=== PATIENT | male | born 1945 | race Hispanic/Latino ===

== ENCOUNTER 2018-08-11 22:21 | Emergency (ER) | payer MEDICARE, OTHER ==
[2018-08-11 22:36] VITALS: BMI 22.6
[2018-08-11 22:44] VITALS: RESP 18; TEMP 98.2
--- NOTE | 2018-08-11 23:06 | ED PDOC ---
Arrival/HPI - General Historian: Patient - History of Present Illness Narrative History of Present Illness (Text): 08/12/18 01:12 72 y/o male with PMH of HTN, HLD, Kidney cysts presents to the ED c/o hematuria x 1 day. Associated bilateral lower back pain, chills, and lightheadedness. Pt has also had intermittent blurry vision, states he has history of cataracts and has an eye doctor appointment tomorrow. Denies chest pain, SOB, <Lanie Kathleen - Last Filed: 08/12/18 01:12> <Prashanth Casanova - Last Filed: 08/12/18 03:06> - General Chief Complaint: Back Pain Time Seen by Provider: 08/11/18 22:50 Past Medical History - Provider Review Nursing Documentation Reviewed: Yes - Cardiac Hx Hypertension: Yes - Renal Hx Kidney Stones: Yes - Psychiatric Hx Substance Use: No <Lanie Kathleen - Last Filed: 08/12/18 01:12> Family/Social History - Physician Review Nursing Documentation Reviewed: Yes Family/Social History: No Known Family HX Smoking Status: Former Smoker Hx Alcohol Use: No Hx Substance Use: No <Lanie Kathleen - Last Filed: 08/12/18 01:12> Allergies/Home Meds <Lanie Kathleen - Last Filed: 08/12/18 01:12> <Prashanth Casanova - Last Filed: 08/12/18 03:06> Allergies/Adverse Reactions: Allergies No Known Allergies Allergy (Verified 08/11/18 22:36) Review of Systems - Review of Systems Constitutional: Normal. absent: Fevers Eyes: Normal. absent: Vision Changes ENT: Normal. absent: Sore Throat, Sinus Congestion Respiratory: Normal. absent: SOB, Cough Cardiovascular: Normal. absent: Chest Pain, Palpitations, Syncope Gastrointestinal: Normal. absent: Abdominal Pain, Nausea, Vomiting Genitourinary Male: Dysuria, Frequency, Hematuria Musculoskeletal: Normal. absent: Arthralgias, Back Pain, Neck Pain Skin: Normal. absent: Rash Neurological: Other (lightheadedness). absent: Headache, Dizziness, Focal Weakness, Speech Changes, Facial Droop Endocrine: Normal Hemo/Lymphatic: Normal Psychiatric: Normal <Lanie Kathleen - Last Filed: 08/12/18 01:12> Physical Exam Vital Signs Reviewed: Yes Vital Signs Temp Pulse Resp BP Pulse Ox 08/11/18 22:36 98.2 F 73 18 144/78 98 Temperature: Afebrile Blood Pressure: Normal Pulse: Regular Respiratory Rate: Normal Appearance: Positive for: Well-Appearing, Non-Toxic, Comfortable Pain Distress: None Mental Status: Positive for: Alert and Oriented X 3 - Systems Exam Head: Present: Atraumatic, Normocephalic Pupils: Present: PERRL Extroacular Muscles: Present: EOMI Conjunctiva: Present: Normal Mouth: Present: Moist Mucous Membranes Neck: Present: Normal Range of Motion Respiratory/Chest: Present: Clear to Auscultation, Good Air Exchange. No: Respiratory Distress, Accessory Muscle Use Cardiovascular: Present: Regular Rate and Rhythm, Normal S1, S2 Abdomen: Present: Normal Bowel Sounds. No: Tenderness, Distention, Peritoneal Signs, Rebound, Guarding Back: Present: Normal Inspection Upper Extremity: Present: Normal Inspection, Normal ROM, NORMAL PULSES, Neurovascularly Intact, Capillary Refill < 2s. No: Cyanosis, Edema, Temperature Abnormalties Lower Extremity: Present: Normal Inspection, NORMAL PULSES, Normal ROM, Neurovascularly Intact, Capillary Refill < 2 s. No: Edema, Temperature Abnormalties Neurological: Present: GCS=15, CN II-XII Intact, Speech Normal, Motor Func Grossly Intact, Normal Sensory Function, Gait Normal Skin: Present: Warm, Dry, Normal Color. No: Rashes Lymphatic: No: Cervical Adenopathy Psychiatric: Present: Alert, Oriented x 3, Normal Insight, Normal Concentration, Normal Affect, Normal Mood <Lanie Kathleen - Last Filed: 08/12/18 01:12> Vital Signs Temp Pulse Resp BP Pulse Ox 08/11/18 22:36 98.2 F 73 18 144/78 98 <Prashanth Casanova - Last Filed: 08/12/18 03:06> Medical Decision Making ED Course and Treatment: 01:17 Initial Plan: * CBC, CMP * Coags * Troponin * UA, culture * CT Abd/Pelvis with IV contrast * Head CT * Testicular US * EKG 01:30 Bloodwork reviewed, unremarkable Urine significant for blood, negative for infection 02:00 Patient care endorsed to ED attending Dr. Casanova, pending CT and US results. Patient made aware in change of provider. Resting comfortably in stretcher with stable vital signs at this time. <HeverLanie - Last Filed: 08/12/18 01:12> ED Course and Treatment: 08/12/18 03:05 No distress. Labs unremarkable. UA shows only hematuria. CT report provided. F/u Urology, instructed to return for worsening symptoms including urinary obstruction. - Lab Interpretations Lab Results: PT 11.5 SECONDS (9.4-12.5) 08/11/18 23:00 INR 1.04 08/11/18 23:00 APTT 29.0 Seconds (26.9-38.3) 08/11/18 23:00 Troponin I < 0.01 ng/mL 08/11/18 23:00 Total Bilirubin 0.6 mg/dL (0.2-1.3) 08/11/18 23:00 AST 28 U/L (17-59) 08/11/18 23:00 ALT 25 U/L (7-56) 08/11/18 23:00 Alkaline Phosphatase 74 U/L (38-126) 08/11/18 23:00 Total Protein 7.7 g/dL (5.8-8.3) 08/11/18 23:00 Albumin 4.3 g/dL (3.0-4.8) 08/11/18 23:00 Globulin 3.4 gm/dL 08/11/18 23:00 Albumin/Globulin Ratio 1.2 (1.1-1.8) 08/11/18 23:00 Urine Color Light red (YELLOW) 08/11/18 23:00 Urine Appearance Sl cloudy (CLEAR) 08/11/18 23:00 Urine pH 6.5 (4.7-8.0) 08/11/18 23:00 Ur Specific [place] 1.010 (1.005-1.035) 08/11/18 23:00 Urine Protein Trace mg/dL (<30 mg/dL) H 08/11/18 23:00 Urine Glucose (UA) Negative mg/dL (NEGATIVE) 08/11/18 23:00 Urine Ketones Negative mg/dL (NEGATIVE) 08/11/18 23:00 Urine Blood Large (NEGATIVE) H 08/11/18 23:00 Urine Nitrate Negative (NEGATIVE) 08/11/18 23:00 Urine Bilirubin Negative (NEGATIVE) 08/11/18 23:00 Urine Urobilinogen 0.2 E.U./dL (<1 E.U./dL) 08/11/18 23:00 Ur Leukocyte Esterase Negative Sandy/uL (NEGATIVE) 08/11/18 23:00 Urine RBC Tntc /hpf (0-2) H 08/11/18 23:00 Urine WBC 0 - 2 /hpf (0-6) 08/11/18 23:00 Ur Epithelial Cells 0 - 2 /hpf (0-5) 08/11/18 23:00 Urine Bacteria None /hpf (NONE) 08/11/18 23:00 - RAD Interpretation Radiology Orders: 08/11/18 23:05 ABD & PELVIS IV CONTRAST ONLY [CT] Stat TESTES DUPLEX COMPLETE [US] Stat 08/12/18 00:08 HEAD W/O CONTRAST [CT] Stat <Prashanth Casanova - Last Filed: 08/12/18 03:06> Disposition/Present on Arrival - Present on Arrival History of DVT/PE: No History of Uncontrolled Diabetes: No Urinary Catheter: No History of Decub. Ulcer: No History Surgical Site Infection Following: None <Lanie Kathleen - Last Filed: 08/12/18 01:12> - Present on Arrival Any Indicators Present on Arrival: No - Disposition Have Diagnosis and Disposition been Completed?: Yes Disposition Time: 03:06 Patient Plan: Discharge <Prashanth Casanova - Last Filed: 08/12/18 03:06> - Disposition Diagnosis: Hematuria, Bladder mass, Enlarged prostate Patient Problems: Current Active Problems Problem Status Onset Bladder mass Acute Enlarged prostate Acute Hematuria Acute Condition: STABLE Discharge Instructions (ExitCare): Blood in the Urine (Hematuria) in Adults Additional Instructions: CT SCAN OF THE ABDOMEN AND PELVIS WITH CONTRAST. CLINICAL HISTORY: Dysuria, bilateral flank pain. TECHNIQUE: Multiple axial and coronal CT images were obtained through the abdomen and pelvis after administration of intravenous contrast material. COMMENTS: 2.2x1.3 cm enhancing lesion of the right posterior lateral wall of the bladder. Mild prostatomegaly. Mild diffuse thickening of the bladder. Mild cardiomegaly. Bilateral simple renal cysts with the largest measuring 5.8 cm. Small sliding hiatal hernia. The liver is of uniform attenuation without mass or defect. There is no intra or extrahepatic biliary ductal dilatation. The spleen is normal. The gallbladder is within normal limits. The pancreas is of normal contour and attenuation characteristics. There is no evidence of adrenal mass. Both kidneys demonstrate prompt and equal nephrograms. The kidneys are normal in size, shape and configuration. There is no evidence of renal or ureteral mass. No renal or ureteral calculi are identified. There is no hydroureter or hydronephrosis. No evidence for appendicitis. There is no bowel wall thickening. No evidence for small or large bowel obstruction. There is no evidence of abdominal ascites or lymphadenopathy. There is no evidence of intrinsic or extrinsic bladder mass. There is no pelvic ascites or lymphadenopathy. Images of the lung bases show no evidence of pleural or parenchymal mass. There are no pleural effusions. The bony structures are free of lytic or blastic lesions. Moderate diffuse spondylosis. IMPRESSION: 2.2x1.3 cm enhancing lesion of the right posterior lateral wall of the bladder. Adherent clot versus neoplastic pathology. Further evaluation can be better done as followup exam and possibly cystoscopy if clinically needed. Mild prostatomegaly. Mild diffuse thickening of the bladder. Mild cardiomegaly. Bilateral simple renal cysts with the largest measuring 5.8 cm. Small sliding hiatal hernia. Referrals: Alejandra Jacob MD [Staff Provider] - Follow up with primary Forms: [employer] (Norwegian)
[2018-08-11 23:38] LABS: PH,URINE 6.5 (4.7-8.0); URINE BILIRUBIN NEGATIVE (NEGATIVE); URINE BLOOD LARGE (NEGATIVE); URINE GLUCOSE (UA) NEGATIVE (NEGATIVE); URINE LEUKOCYTE ESTERASE NEGATIVE Leu/uL (NEGATIVE); URINE PROTEIN TRACE mg/dL (<30 mg/dL); URINE UROBILINOGEN 0.2 E.U./dL (<1 E.U./dL)
[2018-08-11 23:39] LABS: BASO # 0.02 K/mm3 (0.0-2.0); BASO % 0.3 % (0.0-3.0); EOS # 0.2 (0.0-0.7); EOS % 2.1 % (1.5-5.0); HEMOGLOBIN 12.9 g/dL (14.0-18.0); LYMPH # 2.8 (1.2-3.4); LYMPH % 40.5 % (22.0-35.0); MEAN CELL VOLUME 90.8 fl (80.0-105.0); MEAN CORPUSCULAR HGB CONC 31.9 g/dl (31.0-37.0); MEAN PLATELET VOLUME 10.7 fl (7.0-11.0); MONO # 0.5 (0.1-0.6); MONO % 7.6 % (1.0-6.0); RBC 4.45 10^6/uL (3.5-6.1); RED CELL DISTRIBUTION WIDTH 13.5 % (11.5-14.5)
[2018-08-11 23:42] LABS: INR 1.04; PROTHROMBIN TIME 11.5 SECONDS (9.4-12.5)
[2018-08-11 23:47] LABS: ALB/GLOB RATIO 1.2 (1.1-1.8); ALBUMIN 4.3 g/dL (3.0-4.8); ALT/SGPT 25 U/L (7-56); AST/SGOT 28 U/L (17-59); BLOOD UREA NITROGEN 32 mg/dL (7-21); CALCIUM 9.3 mg/dL (8.4-10.5); GFR NON-AFRICAN AMERICAN 59
[2018-08-11 23:52] LABS: URINE APPEARANCE SL CLOUDY (CLEAR); URINE COLOR LIGHT RED (YELLOW)
[2018-08-11 23:55] LABS: URINE EPITHELIAL CELLS 0 - 2 /hpf (0-5); URINE RBC TNTC /hpf (0-2); URINE WBC 0 - 2 /hpf (0-6)
[2018-08-12] MEDS ORDERED: Iohexol 350 MG/100 ML VIAL ONE (01:17)
[2018-08-12 03:12] VITALS: BP 135/72; PULSE 72; O2SAT 99
--- NOTE | 2018-08-12 08:41 | CT ---
Date of service: 08/12/2018 PROCEDURE: CT HEAD WITHOUT CONTRAST. HISTORY: lightheadedness, headache COMPARISON: None available. TECHNIQUE: Axial computed tomography images were obtained through the head/brain without intravenous contrast. Radiation dose: Total exam DLP = 898.33 mGy-cm. This CT exam was performed using one or more of the following dose reduction techniques: Automated exposure control, adjustment of the mA and/or kV according to patient size, and/or use of iterative reconstruction technique. FINDINGS: HEMORRHAGE: No intracranial hemorrhage. BRAIN: No mass effect or edema. Chronic microvascular changes are seen in the periventricular white matter VENTRICLES: Unremarkable. No hydrocephalus. CALVARIUM: Unremarkable. PARANASAL SINUSES: Unremarkable as visualized. No significant inflammatory changes. MASTOID AIR CELLS: Unremarkable as visualized. No inflammatory changes. OTHER FINDINGS: The report concurs with the preliminary [facility] report IMPRESSION: No acute intracranial findings
--- NOTE | 2018-08-12 09:02 | CT ---
Date of service: 08/12/2018 PROCEDURE: CT Abdomen and Pelvis with contrast HISTORY: dysuria, bilateral flank pain COMPARISON: None. TECHNIQUE: Contrast dose: 100 cc of Omni 350 Radiation dose: Total exam DLP = 1039.38 mGy-cm. This CT exam was performed using one or more of the following dose reduction techniques: Automated exposure control, adjustment of the mA and/or kV according to patient size, and/or use of iterative reconstruction technique. FINDINGS: LOWER THORAX: Unremarkable. LIVER: Unremarkable. No gross lesion or ductal dilatation. GALLBLADDER AND BILE DUCTS: Unremarkable. PANCREAS: Unremarkable. No gross lesion or ductal dilatation. SPLEEN: Unremarkable. ADRENALS: Unremarkable. No mass. KIDNEYS AND URETERS: Unremarkable. No hydronephrosis. No solid mass. Multiple bilateral renal cysts. VASCULATURE: Unremarkable. No aortic aneurysm. Aortic calcification BOWEL: Unremarkable. No obstruction. No gross mural thickening. APPENDIX: Normal appendix. PERITONEUM: Unremarkable. No free fluid. No free air. LYMPH NODES: Unremarkable. No enlarged lymph nodes. BLADDER: There is a 2.2 x 1.3 cm enhancing lesion on the right posterior wall of the bladder. This is suspicious for a bladder neoplasm. This measures 65 Hounsfield units in density. REPRODUCTIVE: Unremarkable. BONES: No acute fracture. OTHER FINDINGS: The report concurs with the preliminary [facility] report IMPRESSION: There is a 2.2 x 1.3 cm enhancing lesion on the right posterior wall of the bladder. This is suspicious for a bladder neoplasm. This measures 65 Hounsfield units in density.
--- NOTE | 2018-08-12 13:00 | US ---
Date of service: 08/12/2018 HISTORY: testicular pain TECHNIQUE: Realtime sonography through the scrotum with color and doppler flow. COMPARISON: None Available. FINDINGS: RIGHT TESTICLE: Measures 5.5 x 1.7 x 2.9 cm. Homogeneous echotexture. No mass. Normal flow demonstrated. RIGHT EPIDIDYMIS: Normal size, morphology and vascularity. No mass. LEFT TESTICLE: Measures 4.8 x 1.8 x 3.5 cm. Homogeneous echotexture. No mass. Normal flow demonstrated. LEFT EPIDIDYMIS: Normal size, morphology and vascularity.No mass. HYDROCELE: Minimal bilateral hydrocele. VARICOCELE: None. OTHER FINDINGS: None. IMPRESSION: Minimal bilateral hydrocele. Otherwise unremarkable examination. The preliminary findings for this examination were reported by [facility] at 2:10 a.m. on 08/12/2018. There is concurrence of this report with the preliminary findings.
== END 2018-08-12 03:12 | disposition home or self-care (01) ==
LOC: ED 22:21
DX: N40.0 Benign prostatic hyperplasia without lower urinary tract symptoms (principal); N32.9 Bladder disorder, unspecified; R31.9 Hematuria, unspecified; I10 Essential (primary) hypertension; Z87.891 Personal history of nicotine dependence
CPT/HCPCS: 70450; 74177; 80053; 81001; 84484; 85025; 85610; 85730; 87086; 93975; 99283; Q9967